=== PATIENT | female | born 1940 | race Caucasian/White ===

== ENCOUNTER 2017-07-19 17:31 | Observation (INO) | payer MEDICARE ==
[~2017-07-19] VITALS: Ht 158.8 cm; Wt 44.7 kg
[~2017-07-19 17:31] MED LIST: CALC600T34; CHOL1CAP8 PO; DENO60P SQ; IBUP200C PO
[2017-07-19 17:39] VITALS: BP 139/70; PULSE 134; RESP 16; TEMP 99.6; O2SAT 95
[2017-07-19] MEDS ORDERED: ONDANSETRON HCL 4 MG/2 ML VIAL IVP ONE (18:00)
[2017-07-19] MEDS ORDERED: SODIUM CHLOR 0.9% 1000 ML INJ 1,000 ML IV ONE (18:00)
--- NOTE | 2017-07-19 18:00 | PD ---
HPI Chief Complaint: Complaint Time Seen by Provider: 17:47 Travel History International Travel<30 days: No Contact w/Intl Traveler<30days: No Traveled to known affect area: No History of Present Illness HPI This patient complains of fatigue and malaise and nausea and vomiting and diarrhea. Her appetite is poor. She is getting chemotherapy instilled into her bladder for bladder cancer treatment. She says that she has a urinary infection and needs antibiotics. Was having fever and chills. Had temp of 101 at primary physician office today. She saw her primary physician today and they sent her here. No alleviating factors. Symptoms likely exacerbated by chemotherapy. Primary physician specifically requested her to be admitted. PFSH Past Medical History Cancer: Yes (BLADDER AND BREAST) Chemotherapy: Yes Diminished Hearing: No Musculoskeletal: Yes Radiation Therapy: Yes Past Surgical History Genitourinary Surgery: Yes (BLADDER TUMOR) Social History Alcohol Use: Yes (GLASS RED WINE HS) Tobacco Use: No Substance Use: No Allergies-Medications (Allergen,Severity, Reaction): Coded Allergies: No Known Allergies (Verified Adverse Reaction, Unknown, 07/19/17) Reported Meds & Prescriptions Reported Meds & Active Scripts Active Review of Systems General / Constitutional: No: Fever Eyes: No: Visual changes HENT: Positive: Rhinorrhea, Congestion, No: Headaches Cardiovascular: No: Chest Pain or Discomfort Respiratory: No: Shortness of Breath Gastrointestinal: Positive: Nausea, Vomiting, Diarrhea, No: Abdominal Pain Genitourinary: No: Dysuria Musculoskeletal: No: Pain Skin: No Rash Neurologic: No: Syncope Psychiatric: No: Depression Endocrine: No: Polydipsia Hematologic/Lymphatic: No: Easy Bruising Physical Exam Narrative GENERAL: Thin well-developed patient in no apparent distress. SKIN: Focused skin assessment reveals no rash and nodules. Skin is Warm and dry. HEAD: Atraumatic. Normocephalic. EYES: Pupils equal and round. No scleral icterus. No injection or drainage. ENT: No nasal bleeding or discharge. Mucous membranes pink and moist. NECK: Trachea midline. No JVD. CARDIOVASCULAR: Regular rate and rhythm. No murmur appreciated. RESPIRATORY: No accessory muscle use. Clear to auscultation. Breath sounds equal bilaterally. GASTROINTESTINAL: Abdomen soft, non-tender, nondistended. Hepatic and splenic margins not palpable. MUSCULOSKELETAL: No obvious deformities. No clubbing. No cyanosis. No edema. NEUROLOGICAL: Awake and alert. No obvious cranial nerve deficits. Motor grossly within normal limits. Normal speech. PSYCHIATRIC: Appropriate mood and affect; insight and judgment normal. Data Data Last Documented VS Vital Signs Date Time Temp Pulse Resp B/P (MAP) Pulse Ox O2 Delivery O2 Flow Rate FiO2 07/19/17 19:00 18 07/19/17 19:00 83 103/58 (73) 97 Room Air 07/19/17 17:39 99.6 Orders Orders Iv Access Insert/Monitor (07/19/17 17:53) Complete Blood Count With Diff (07/19/17 17:53) Basic Metabolic Panel (Bmp) (07/19/17 17:53) Urinalysis - C+S If Indicated (07/19/17 17:53) Sodium Chlor 0.9% 1000 Ml Inj (Ns 1000 M (07/19/17 18:00) Ondansetron Inj (Zofran Inj) (07/19/17 18:00) Blood Culture (07/19/17 18:20) Chest, Single Ap (07/19/17 ) Ceftazidime Inj (Fortaz Inj) (07/19/17 18:30) Urine Culture (07/19/17 18:30) Admit Order (Ed Use Only) (07/19/17 20:10) Labs Laboratory Tests Test 07/19/17 18:30 07/19/17 18:40 Urine Color YELLOW Urine Turbidity CLEAR Urine pH 6.0 Urine Specific [place] 1.016 Urine Protein 300 OR GREATER mg/dL Urine Glucose (UA) 100 mg/dL Urine Ketones NEG mg/dL Urine Occult Blood LARGE Urine Nitrite POS Urine Bilirubin NEG Urine Leukocyte Esterase MOD Urine RBC 100-200 /hpf Urine WBC INNUM /hpf Urine Squamous Epithelial Cells 0-5 /hpf Urine Bacteria MOD /hpf Microscopic Urinalysis Comment CULTURE INDICATED White Blood Count 14.1 TH/MM3 Red Blood Count 3.78 MIL/MM3 Hemoglobin 11.4 GM/DL Hematocrit 35.4 % Mean Corpuscular Volume 93.7 FL Mean Corpuscular Hemoglobin 30.3 PG Mean Corpuscular Hemoglobin Concent 32.3 % Red Cell Distribution Width 13.2 % Platelet Count 222 TH/MM3 Mean Platelet Volume 8.1 FL Neutrophils (%) (Auto) 86.4 % Lymphocytes (%) (Auto) 1.7 % Monocytes (%) (Auto) 11.7 % Eosinophils (%) (Auto) 0.1 % Basophils (%) (Auto) 0.1 % Neutrophils # (Auto) 12.2 TH/MM3 Lymphocytes # (Auto) 0.2 TH/MM3 Monocytes # (Auto) 1.6 TH/MM3 Eosinophils # (Auto) 0.0 TH/MM3 Basophils # (Auto) 0.0 TH/MM3 CBC Comment AUTO DIFF Differential Comment AUTO DIFF CONFIRMED Blood Urea Nitrogen 16 MG/DL Creatinine 0.88 MG/DL Random Glucose 177 MG/DL Calcium Level 8.4 MG/DL Sodium Level 136 MEQ/L Potassium Level 3.8 MEQ/L Chloride Level 102 MEQ/L Carbon Dioxide Level 26.3 MEQ/L Anion Gap 8 MEQ/L Estimat Glomerular Filtration Rate 62 ML/MIN MDM Medical Decision Making Medical Screen Exam Complete: Yes Emergency Medical Condition: Yes Medical Record Reviewed: Yes Differential Diagnosis Chemotherapy side effect, dehydration, UTI Narrative Course I have reviewed the patient's electronic medical record. Reviewed her last oncology note which was 2010 IV placed I gave her 1 L normal saline IV Gave her IV Zofran CBC shows leukocytosis of 14,000 Metabolic profile is normal Urinalysis shows innumerable white cells with other infection markers and will be cultured I gave her 1 g IV Fortaz I reviewed her chest x-ray which is normal She had blood cultures drawn I reviewed with hospitalist will admit Diagnosis Primary Impression: Fever and chills Additional Impressions: Complication of chemotherapy Qualified Codes: T88.7XXA - Unspecified adverse effect of drug or medicament, initial encounter Cystitis Admitting Information Admitting Physician Requests: Admit Golden Brand MD Jul 19, 2017 18:00
[2017-07-19] MEDS ORDERED: cefTAZidime INJ 1,000 MG in SODIUM CHLORIDE 0.9% INJ 100 ML IV ONE (18:30)
[2017-07-19 18:42] LABS: BLOOD, URINE LARGE (NEG); GLUCOSE,URINE 100 mg/dL (NEG); KETONE, URINE NEG (NEG); NITRITE,URINE POS (NEG)
[2017-07-19 18:48] LABS: URINE COLOR YELLOW (YELLW/STRAW)
[2017-07-19 18:50] LABS: BACTERIA, URINE MOD /hpf; RBC, URINE 100-200 /hpf (0-3); SQUAMOUS EPITHELIAL CELL URINE 0-5 /hpf (0-5); WBC, URINE INNUM /hpf (0-5)
[2017-07-19 18:51] LABS: COMMENT (UR) CULTURE INDICATED; CULTURE IF INDICATED CULTURE INDICATED
[2017-07-19 19:00] VITALS: BP 103/58; PULSE 83; RESP 18; O2SAT 97
[2017-07-19 19:11] LABS: AUTOMATED NEUTROPHIL # 12.2 TH/MM3 (1.8-7.7); BASOPHIL % 0.1 % (0.0-2.0); EOSINOPHIL % 0.1 % (0.0-4.0); HEMATOCRIT 35.4 % (35.0-46.0); LYMPH % 1.7 % (9.0-44.0); LYMPHOCYTE # 0.2 TH/MM3 (1.0-4.8); MEAN CELL VOLUME 93.7 FL (80.0-100.0); MEAN CORPUSCULAR HEMOGLOBIN 30.3 PG (27.0-34.0); MEAN CORPUSCULAR HGB CONC 32.3 % (32.0-36.0); MONO % 11.7 % (0.0-8.0); NEUT % 86.4 % (16.0-70.0); PLATELET COUNT 222 TH/MM3 (150-450); RED BLOOD COUNT 3.78 MIL/MM3 (4.00-5.30); RED CELL DISTRIBUTION WIDTH 13.2 % (11.6-17.2); WHITE BLOOD COUNT 14.1 TH/MM3 (4.0-11.0)
--- NOTE | 2017-07-19 19:12 | RADRPT ---
EXAM DATE/TIME: 07/19/2017 18:43 [facility] COMPARISON: No previous studies available for comparison. INDICATIONS : Fever post chemotherapy. MEDICAL HISTORY : Carcinoma, bladder. Carcinoma, breast. SURGICAL HISTORY : Bladder tumor. ENCOUNTER: Initial ACUITY: 1 day PAIN SCORE: 0/10 LOCATION: Bilateral chest FINDINGS: The heart is normal. The pulmonary vascular pattern is normal. The lungs are clear. Mild degenerative changes and scoliosis of the thoracolumbar spine are noted. CONCLUSION: No acute cardiopulmonary disease. Daniel Syed MD on July 19, 2017 at 19:08 Board Certified Radiologist. This report was verified electronically.
[2017-07-19 19:16] LABS: POTASSIUM 3.8 MEQ/L (3.5-5.1)
[2017-07-19 19:18] LABS: BICARBONATE 26.3 MEQ/L (21.0-32.0)
[2017-07-19 19:19] LABS: HEMO FLAGS AUTO DIFF
[2017-07-19 20:15] LABS: SCAN/DIFF AUTO DIFF CONFIRMED
[2017-07-19] MEDS ORDERED: NALOXONE HCL 0.4 MG/ML AMP IV PUSH PRN (20:15)
[2017-07-19] MEDS ORDERED: SODIUM CHLORIDE 0.9% FLUSH 10 ML FLUSH IV FLUSH PRN (20:15)
[2017-07-19 21:25] VITALS: BP 103/51
[2017-07-19] MEDS: SODIUM CHLORIDE 0.9% FLUSH 10 ML FLUSH IV FLUSH SCH (21:25)
[2017-07-19 21:39] VITALS: PULSE 81
[2017-07-19 21:45] VITALS: BP 118/65; PULSE 82; RESP 20; TEMP 96.3; O2SAT 99
[2017-07-20] MEDS ORDERED: IBUPROFEN 400 MG TAB PO PRN (01:45)
[2017-07-20 04:00] VITALS: BP 101/58; PULSE 69; RESP 20; TEMP 98; O2SAT 100
[2017-07-20 06:18] LABS: BASOPHIL % 0.2 % (0.0-2.0); EOSINOPHIL % 0.2 % (0.0-4.0); HEMATOCRIT 33.2 % (35.0-46.0); LYMPH % 6.5 % (9.0-44.0); LYMPHOCYTE # 0.7 TH/MM3 (1.0-4.8); MEAN CELL VOLUME 92.5 FL (80.0-100.0); MEAN CORPUSCULAR HEMOGLOBIN 30.1 PG (27.0-34.0); MEAN CORPUSCULAR HGB CONC 32.6 % (32.0-36.0); MONO % 12.2 % (0.0-8.0); NEUT % 80.9 % (16.0-70.0); PLATELET COUNT 201 TH/MM3 (150-450); RED BLOOD COUNT 3.59 MIL/MM3 (4.00-5.30); RED CELL DISTRIBUTION WIDTH 12.9 % (11.6-17.2)
[2017-07-20 06:22] LABS: HEMO FLAGS DIFF FINAL
[2017-07-20 06:28] LABS: POTASSIUM 3.9 MEQ/L (3.5-5.1)
[2017-07-20 06:35] LABS: BICARBONATE 27.6 MEQ/L (21.0-32.0)
[2017-07-20 08:00] VITALS: BP 106/51; PULSE 100; PULSE 77; RESP 16; TEMP 99.1; O2SAT 98
[2017-07-20] MEDS ORDERED: CEFEPIME INJ 2,000 MG in SODIUM CHLORIDE 0.9% INJ 100 ML IV SCH (08:00)
[2017-07-20] MEDS: SODIUM CHLORIDE 0.9% FLUSH 10 ML FLUSH IV FLUSH SCH (09:21)
[2017-07-20 12:00] VITALS: BP 115/53; PULSE 91; RESP 16; TEMP 98.7; O2SAT 97
--- NOTE | 2017-07-20 12:38 | HHI.HP ---
[facility] Walter Vee MD Admission Diagnosis fever,on chemo,cystitis Diagnoses: Chief Complaint: Nausea, vomiting, diarrhea, fever, chills. Travel History International Travel<30 Days: No Contact w/Intl Traveler <30 Da: No Traveled to Known Affected Are: No Sepsis Criteria SIRS Criteria (2 or more): Heart rate over 90, WBC > 61483, < 4000 or > 10% bands Sepsis Criteria (SIRS+source): Infect source susp/known Criteria Outcome: Meets SIRS criteria, Meets sepsis criteria History of Present Illness Ms. Branham is a pleasant 77-year-old female with a history of bladder cancer, breast cancer who presented to the emergency department on 07/19/2017 due to fatigue, malaise, nausea and vomiting, diarrhea. She also had fever and chills. She reported some abdominal pain as well as dysuria. No hematuria. She did not have any chest pain, shortness of breath. Patient went to her primary care physician who requested hospital admission. At the time of this interview on 07/20/2017, patient reports no chest pain, shortness of breath, fever or chills. She tolerated her breakfast well. She reports resolution of diarrhea as well as vomiting. She would like to go home. Review of Systems Except as stated in HPI: all other systems reviewed are Neg Past Family Social History Past Medical History Bladder cancer Breast cancer right-sided Past Surgical History Right-sided lumpectomy in 2006 due to breast cancer Allergies: Coded Allergies: No Known Allergies (Verified Allergy, Unknown, 07/19/17) Family History Father and brother - bladder cancer Social History Patient denies using tobacco or illicit drugs. She drinks alcohol socially. Physical Exam Vital Signs Vital Signs Date Time Temp Pulse Resp B/P (MAP) Pulse Ox O2 Delivery O2 Flow Rate FiO2 07/20/17 12:00 98.7 91 16 115/53 (73) 97 07/20/17 08:00 99.1 77 16 106/51 (69) 98 07/20/17 08:00 100 07/20/17 04:00 98.0 69 20 101/58 (72) 100 07/19/17 21:45 96.3 82 20 118/65 (82) 99 07/19/17 21:39 81 07/19/17 21:25 83 18 103/51 (68) 99 07/19/17 19:00 18 07/19/17 19:00 83 18 103/58 (73) 97 Room Air 07/19/17 17:39 99.6 134 16 139/70 (93) 95 Physical Exam GENERAL: This is a well-nourished, well-developed patient, in no apparent distress. SKIN: No rashes, ecchymoses or lesions. Warm and dry. HEAD: Atraumatic. Normocephalic. No temporal or scalp tenderness. EYES: Pupils equal round and reactive. No injection or drainage. ENT: Nose without bleeding, purulent drainage or septal hematoma. Airway patent. NECK: Trachea midline. No lymphadenopathy. Supple, nontender, no meningeal signs. CARDIOVASCULAR: Regular rate and rhythm without murmurs, gallops, or rubs. No JVD. RESPIRATORY: Clear to auscultation. Breath sounds equal bilaterally. No wheezes , rales, or rhonchi. GASTROINTESTINAL: Abdomen soft, non-tender, nondistended. No guarding. MUSCULOSKELETAL: Extremities without clubbing, cyanosis, or edema. NEUROLOGICAL: Awake and alert. Cranial nerves II through XII intact. No focal neurological deficits. Normal speech. Laboratory Laboratory Tests Test 07/19/17 18:30 07/19/17 18:40 07/20/17 05:35 Urine Color YELLOW Urine Turbidity CLEAR Urine pH 6.0 Urine Specific [place] 1.016 Urine Protein 300 OR GREATER Urine Glucose (UA) 100 Urine Ketones NEG Urine Occult Blood LARGE Urine Nitrite POS Urine Bilirubin NEG Urine Leukocyte Esterase MOD Urine RBC 100-200 Urine WBC INNUM Urine Squamous Epithelial Cells 0-5 Urine Bacteria MOD Microscopic Urinalysis Comment CULTURE INDICATED White Blood Count 14.1 11.0 Red Blood Count 3.78 3.59 Hemoglobin 11.4 10.8 Hematocrit 35.4 33.2 Mean Corpuscular Volume 93.7 92.5 Mean Corpuscular Hemoglobin 30.3 30.1 Mean Corpuscular Hemoglobin Concent 32.3 32.6 Red Cell Distribution Width 13.2 12.9 Platelet Count 222 201 Mean Platelet Volume 8.1 7.8 Neutrophils (%) (Auto) 86.4 80.9 Lymphocytes (%) (Auto) 1.7 6.5 Monocytes (%) (Auto) 11.7 12.2 Eosinophils (%) (Auto) 0.1 0.2 Basophils (%) (Auto) 0.1 0.2 Neutrophils # (Auto) 12.2 9.0 Lymphocytes # (Auto) 0.2 0.7 Monocytes # (Auto) 1.6 1.3 Eosinophils # (Auto) 0.0 0.0 Basophils # (Auto) 0.0 0.0 CBC Comment AUTO DIFF DIFF FINAL Differential Comment AUTO DIFF CONFIRMED Blood Urea Nitrogen 16 16 Creatinine 0.88 0.82 Random Glucose 177 113 Calcium Level 8.4 7.8 Sodium Level 136 141 Potassium Level 3.8 3.9 Chloride Level 102 107 Carbon Dioxide Level 26.3 27.6 Anion Gap 8 6 Estimat Glomerular Filtration Rate 62 68 Date/Time Source Procedure Growth Status 07/19/17 18:40 Blood Peripheral Aerobic Blood Culture - Preliminary NO GROWTH IN 1 DAY Resulted 07/19/17 18:40 Blood Peripheral Anaerobic Blood Culture - Preliminary NO GROWTH IN 1 DAY Resulted 07/19/17 18:30 Urine Clean Catch Urine Culture Pending Received Result Diagram: 07/20/17 0535 07/20/17 0535 Imaging Last Impressions Chest X-Ray 07/19/17 0000 Signed Impressions: Service Date/Time: Wednesday, July 19, 2017 18:43 - CONCLUSION: No acute cardiopulmonary disease. MD Wily Osorio VTE Risk Assessment Caprini VTE Risk Assessment: Mod/High Risk (score >= 2) Caprini Risk Assessment Model Point Value = 1 Point Value = 2 Point Value = 3 Point Value = 5 Age 41-60 Minor surgery BMI > 25 kg/m2 Swollen legs Varicose veins or History of unexplained or recurrent spontaneous Oral contraceptives or hormone replacement Sepsis (< 1 month) Serious lung disease, including pneumonia (< 1 month) Abnormal pulmonary function Acute myocardial infarction Congestive heart failure (< 1 month) History of inflammatory bowel disease Medical patient at bed rest Age 61-74 Arthroscopic surgery Major open surgery (> 45 min) Laparoscopic surgery (> 45 min) Malignancy Confined to bed (> 72 hours) Immobilizing plaster cast Central venous access Age >= 75 History of VTE Family history of VTE Factor V Leiden Prothrombin [id number] Lupus anticoagulant Anticardiolipin antibodies Elevated serum homocysteine Heparin-induced thrombocytopenia Other congenital or acquired thrombophilia Stroke (< 1 month) Elective arthroplasty Hip, pelvis, or leg fracture Acute spinal cord injury (< 1 month) Prophylaxis Regimen Total Risk Factor Score Risk Level Prophylaxis Regimen 0-1 Low Early ambulation 2 Moderate Order ONE of the following: *Sequential Compression Device (SCD) *Heparin 5000 units SQ BID 3-4 Higher Order ONE of the following medications: *Heparin 5000 units SQ TID *Enoxaparin/Lovenox 40 mg SQ daily (WT < 150 kg, CrCl > 30 mL/min) *Enoxaparin/Lovenox 30 mg SQ daily (WT < 150 kg, CrCl > 10-29 mL/min) *Enoxaparin/Lovenox 30 mg SQ BID (WT < 150 kg, CrCl > 30 mL/min) AND/OR *Sequential Compression Device (SCD) 5 or more Highest Order ONE of the following medications: *Heparin 5000 units SQ TID (Preferred with Epidurals) *Enoxaparin/Lovenox 40 mg SQ daily (WT < 150 kg, CrCl > 30 mL/min) *Enoxaparin/Lovenox 30 mg SQ daily (WT < 150 kg, CrCl > 10-29 mL/min) *Enoxaparin/Lovenox 30 mg SQ BID (WT < 150 kg, CrCl > 30 mL/min) AND *Sequential Compression Device (SCD) Assessment and Plan Problem List: (1) Bladder cancer ICD Code: C67.9 - Malignant neoplasm of bladder, unspecified (2) Gram-negative bacteremia ICD Code: R78.81 - Bacteremia (3) Urinary tract infection ICD Code: N39.0 - Urinary tract infection, site not specified Assessment and Plan Ms. Branham is a pleasant 77-year-old female with a history of bladder cancer, breast cancer who presented to the emergency department due to nausea vomiting, diarrhea, abdominal pain as well as fever and chills. She was started on cefepime in the hospital. Patient is hemodynamically stable and wants to go home. - Urinary tract infection due to Escherichia coli - Patient received cefepime in the hospital. Urine culture shows Escherichia coli. Discussed with microbiology. - While in the hospital patient was given cefepime. We can continue ciprofloxacin on discharge. - Gram-negative myah bacteremia - likely Escherichia coli. - With microbiology earlier today. At the time but neurology report was not available. - Later in the afternoon on the day of discharge, blood culture shows gram- negative rods. - Since patient is hemodynamically stable and feeling better, it would be reasonable to discharge patient home with 7-14 days of ciprofloxacin 500 mg twice a day. - Advised patient to obtain blood culture in 3-5 days. If resolved, ciprofloxacin can be stopped after 7 days. - Patient will follow-up with her primary care doctor as well as urologist. - History of bladder cancer - History of breast cancer - Outpatient management. Full code. Ablation. Discharge patient to home Condition on discharge: Improved Regular Diet as tolerated Ad Jennifer activity Rx written: - Ciprofloxacin 500 mg every 12 hours #28 Follow-up with primary care physician when necessary, urologist within 1 week. Arslan Moran DO Jul 20, 2017 12:38 pm
[2017-07-20] MEDS ORDERED: ONDANSETRON HCL 4 MG/2 ML VIAL IV PUSH PRN (13:00)
[2017-07-20] MEDS ORDERED: CIPR250T52 PO (14:03)
[2017-07-20] MEDS ORDERED: CIPR-9 PO (15:05)
== END 2017-07-20 15:16 | disposition home or self-care (01) ==
LOC: PHED 17:31 → PHEDA 20:12 → PH3B 21:34
PROVIDERS: ADMIT Hospitalist; ATTEND Hospitalist
DX: C67.9 Malignant neoplasm of bladder, unspecified (principal); R78.81 Bacteremia; N30.90 Cystitis, unspecified without hematuria; B96.20 Unspecified Escherichia coli [E. coli] as the cause of diseases classified elsewhere; T45.1X5A Adverse effect of antineoplastic and immunosuppressive drugs, initial encounter; R19.7 Diarrhea, unspecified; M41.9 Scoliosis, unspecified; Z85.3 Personal history of malignant neoplasm of breast
CPT/HCPCS: 71010; 80048; 81001; 85025; 87040; 87077; 87086; 87186; 87205; 96361; 96365; 96375; 96376; 97162; 99285; G0378; G8987; G8988; J0692; J0713; J2405; J7030